=== PATIENT | male | born 1970 | race Caucasian/White ===

== ENCOUNTER 2019-05-10 22:18 | Emergency (ER) | payer BC ==
[~2019-05-10] VITALS: Ht 170.1 cm; Wt 83.9 kg
[~2019-05-10 22:18] MED LIST: AGM875T PO; CEPH-38 PO; CPR500T PO; CYCL10TA9 PO; HYDR-2997 PO; HYDR1CAP2 PO; HYDR1TAB PO; IBP800T PO; NAPR-243 PO; OXYC-12 PO; PRD50T PO; RNT150T PO
[2019-05-10] MEDS ORDERED: L.E.T. SYRINGE 5 ML ONE (22:49)
[2019-05-10] MEDS ORDERED: LIDOCAINE/EPI 2% 1:100,00 (XYLOCAINE) 20 ML VIAL INJ ONE (23:00)
[2019-05-10] MEDS ORDERED: SODIUM BICARB 8.4% 50 MEQ/50 ML VIAL IV ONE (23:00)
[2019-05-10] MEDS ORDERED: L.E.T. SYRINGE 5 ML TOP ONE (23:00)
[2019-05-10] MEDS ORDERED: SULF1TAB35 PO (23:44)
[2019-05-10] MEDS ORDERED: TRIM/SULFAMETH 160/800 (SEPTRA DS) TAB PO ONE (23:45)
--- NOTE | 2019-05-10 23:46 | ED General ---
General Chief Complaint: Skin/Wound Problems Stated Complaint: SORE ON NECK Nursing Triage Note: C/O PAINFUL SWOLLEN AREA ON LEFT JAW LINE, STATES WAS THE SIZE OF A PEA YESTERDAY AND NOW IS HALF DOLLAR SIZE AND 6/10 ON PAIN SCALE. NO DRAINAGE, NO FEVERS PER PATIENT. Nursing Sepsis Screen: No Definite Risk Source of Information: Patient Exam Limitations: No Limitations History of Present Illness Date Seen by Provider: May 10, 2019 Time Seen by Provider: 22:41 Initial Comments This 49-year-old gentleman presents to the emergency room with a painful swelling over the angle of his left jaw. It has been progressing over the past couple of days. He reports it was the size of a pea yesterday and much larger and more painful today. He denies any drainage. His 17-year-old daughter tried to drain it with a needle. He denies any fever. Allergies and Home Medications Allergies Coded Allergies: ARNAUDANo Known Allergies (Unverified Allergy, Mild, 11/20/08) Home Medications Cyclobenzaprine Hcl 10 Mg Tablet, 1 EACH PO Q8HR PRN Prescribed by: MARIANA SCHRADER on 06/09/12 1116 Ibuprofen 800 Mg Tablet, 1 TAB PO TID PRN Prescribed by: MARIANA SCHRADER on 06/09/12 1116 Oxycodone Hcl/Acetaminophen 1 Each Tablet, 1 EACH PO Q6H PRN Prescribed by: MARIANA SCHRADER on 06/09/12 1116 Prednisone 50 Mg Tab, 50 MG PO DAILY Prescribed by: MARIANA SCHRADER on 06/09/12 1117 Sulfamethoxazole/Trimethoprim 1 Each Tablet, 1 EACH PO BID Prescribed by: MARIANA SCHRADER on 05/10/19 2344 Patient Home Medication List Home Medication List Reviewed: Yes Review of Systems Review of Systems Constitutional: no symptoms reported EENTM: see HPI Respiratory: no symptoms reported Cardiovascular: no symptoms reported Gastrointestinal: no symptoms reported Genitourinary: no symptoms reported Musculoskeletal: no symptoms reported Skin: no symptoms reported Psychiatric/Neurological: No Symptoms Reported Hematologic/Lymphatic: No Symptoms Reported Immunological/Allergic: no symptoms reported Past Clpsetf-Ajrqbf-Hnczkk Hx Past Med/Social Hx: Reviewed Nursing Past Med/Soc Hx Patient Social History Alcohol Use: Denies Use Recreational Drug Use: No Recent Foreign Travel: No Contact w/Someone Who Travel: No Recent Infectious Disease Expo: No Recent Hopitalizations: No Physical Abuse: No Sexual Abuse: No Mistreated: No Fear: No Immunizations Up To Date Date of Influenza Vaccine: Dec 12, 2018 Past Medical History Surgeries: Yes (HERNIA) Abdominal, Orthopedic Respiratory: No Cardiac: No Neurological: No Genitourinary: No Gastrointestinal: Yes Hiatal Hernia Musculoskeletal: Yes (RIGHT FINGER AND SHOULDER) HEENT: No Cancer: No Psychosocial: No Integumentary: No Blood Disorders: No Physical Exam Vital Signs Vital Signs - First Documented 05/10/19 22:27 Temp 36.6 Pulse 65 Resp 20 B/P (MAP) 141/85 (103) Pulse Ox 98 Capillary Refill : Less Than 3 Seconds Height, Weight, BMI Height: '" Weight: lbs. oz. kg; 28.00 BMI Method:Stated General Appearance: No Apparent Distress, WD/WN HEENT: PERRL/EOMI, Other (large painful swelling over the angle of the left jaw with localized induration in a diameter of about 3 cm.) Neck: Normal Inspection, Supple Respiratory: Lungs Clear, Normal Breath Sounds, No Accessory Muscle Use Cardiovascular: Regular Rate, Rhythm, No Edema, No Murmur Extremity: Normal Inspection Neurologic/Psychiatric: Alert, Oriented x3, No Motor/Sensory Deficits, Normal Mood/Affect, trimmer press clippings II-XII Norm as Tested Skin: Normal Color, Warm/Dry, Other (see above) Procedures/Interventions I&D : Blade Size: 11 Progress Bedside ultrasound was performed and confirmed fluid collection resembling abscess. Topical anesthesia was applied with LET. Skin was then cleansed with alcohol. Buffered lidocaine with epinephrine was used for local anesthesia in a regional block surrounding the abscess. Approximately 8 mL was injected. A 1 cm incision was then made directly over the center of the abscess. A small amount of purulent drainage was expressed and cultured. Loculations were broken with a hemostat. More purulent drainage was expressed. Wound was then irrigated and dressed. Patient tolerated the procedure well. Progress/Results/Core Measures Suspected Sepsis Recent Fever Within 48 Hours: No Infection Criteria Present: None New/Unexplained Altered Menta: No Sepsis Screen: No Definite Risk SIRS Temperature: Pulse: 65 Respiratory Rate: 20 Blood Pressure 141 /85 Mean: 103 Results/Orders My Orders Orders - MARIANA CANCINO MD Let Solution (Let Solution) (05/10/19 23:00) Lidocaine/Epi 2% 1:100,000 (Xylocaine/Ep (05/10/19 23:00) Sodium Bicarbonate 8.4% Vial (Sodium Bic (05/10/19 23:00) Let Solution (Let Solution) (05/10/19 22:49) Sulfamethoxazole/Trimet Ds Tab (Bactrim (05/10/19 23:45) Medications Given in ED Current Medications Medications Dose Ordered Sig/Rupa Route Start Time Stop Time Status Last Admin Dose Admin Lidocaine/ Epinephrine 20 ml ONCE ONCE INJ 05/10/19 23:00 05/10/19 23:01 DC 05/10/19 23:25 20 ML Sodium Bicarbonate 50 meq ONCE ONCE IV 05/10/19 23:00 05/10/19 23:01 DC 05/10/19 23:25 50 MEQ Tetracaine/ Epinephrine/ Lidocaine 1 ea ONCE ONCE TOP 05/10/19 23:00 05/10/19 23:01 DC 05/10/19 22:56 1 EA Trimethoprim/ Sulfamethoxazole 1 ea ONCE ONCE PO 05/10/19 23:45 05/10/19 23:46 DC 05/10/19 23:47 1 EA Vital Signs/I&O 05/10/19 05/10/19 22:27 23:58 Temp 36.6 36.6 Pulse 65 65 Resp 20 20 B/P (MAP) 141/85 (103) 141/85 (103) Pulse Ox 98 98 Capillary Refill : Less Than 3 Seconds Blood Pressure Mean: 103 Progress Note : Progress Note Bedside ultrasound revealed fluid collections suggesting abscess. Incision and drainage was performed with culture collection. A dose of Bactrim DS was administered. Departure Impression Primary Impression: Abscess Additional Impression: Encounter for incision and drainage procedure Disposition: HOME, SELF-CARE Condition: Improved Departure-Patient Inst. Decision time for Depature: 23:42 Referrals: NO,LOCAL PHYSICIAN (PCP/Family) Primary Care Physician Patient Instructions: Abscess Incision and Drainage (DC) Add. Discharge Instructions: You may take ibuprofen up to 600 mg every 6 hours and/or Tylenol (acetaminophen) up to 1000 mg every 6 hours as needed for pain. Apply warm moist compresses for 20-30 minutes 2 or 3 times a day for the next few days. Keep covered until it quits draining. Complete the entire course of antibiotics as prescribed. If this is actually an infected sebaceous cyst instead of an abscess, you may eventually need it surgically removed. Please follow-up with your primary care provider if you have recurrence of a lump in this area. Return to care if you have worsening symptoms, especially if you develop fevers over 100. Avoid shaving in this area until skin is healed. All discharge instructions reviewed with patient and/or family. Voiced understanding. Scripts Sulfamethoxazole/Trimethoprim (Bactrim Ds Tablet) 1 Each Tablet 1 EACH PO BID, #14 TAB Prov: MARIANA CANCINO MD 05/10/19 MARIANA CANCINO MD May 10, 2019 23:46
[2019-05-10 23:58] VITALS: BP 141/85
== END 2019-05-11 00:01 | disposition home or self-care (01) ==
LOC: EDUNIT# 22:18 → ER 22:20
DX: M27.2 Inflammatory conditions of jaws (principal); Z79.52 Long term (current) use of systemic steroids
CPT/HCPCS: 87070; 87077; 87205; 99283

== ENCOUNTER 2019-11-09 11:26 | Emergency (ER) | payer SELFPAY ==
[~2019-11-09] VITALS: Ht 167.7 cm; Wt 63.6 kg
[~2019-11-09 11:26] MED LIST changes: +SULF1TAB35 PO
[2019-11-09 12:25] LABS: BILIRUBIN,URINE NEGATIVE (NEGATIVE); CLARITY,URINE CLEAR; COLOR,URINE YELLOW; GLUCOSE, URINE (UA) NEGATIVE (NEGATIVE); KETONES,URINE NEGATIVE (NEGATIVE); LEUKOCYTE ESTERASE ,URINE NEGATIVE (NEGATIVE); NITRITE,URINE NEGATIVE (NEGATIVE); PROTEIN,URINE NEGATIVE (NEGATIVE)
--- NOTE | 2019-11-09 12:26 | NUR ---
DAUGHTER IN LAW CALLED CHECKING ABOUT HIM TALKED WITH PATIENT OK TO TALK WITH HER.
--- NOTE | 2019-11-09 12:29 | NUR ---
DR PICKARD HERE TO SEE PATIENT.
--- NOTE | 2019-11-09 12:29 | NUR ---
Nieves akins in [facility] - 11/09/19 at [address] PICKARD HERE TO SEE PATIENT.
[2019-11-09 12:34] LABS: BACTERIA,URINE NEGATIVE /HPF; SQUAMOUS EPITHELIAL CELL,UR 0-2 /HPF
[2019-11-09 12:36] LABS: AMPHETAMINE SCREEN, URINE POSITIVE (NEGATIVE); BARBITURATE SCREEN URINE NEGATIVE (NEGATIVE); BENZODIAZEPINES SCREEN URINE NEGATIVE (NEGATIVE); CANNABINOID SCREEN, URINE NEGATIVE (NEGATIVE); COCAINE SCREEN URINE NEGATIVE (NEGATIVE); METHADONE STAT NEGATIVE (NEGATIVE); METHAMPHETAMINE SCREEN URINE S POSITIVE (NEGATIVE); OPIATE SCREEN URINE NEGATIVE (NEGATIVE); OXYCODONE STAT NEGATIVE (NEGATIVE); PROPOXYPHENE STAT NEGATIVE (NEGATIVE); TRICYCLIC ANTIDEPRESSANTS SCRE NEGATIVE (NEGATIVE)
[2019-11-09 12:45] LABS: BASOPHILS % (AUTO) 0 % (0-10); EOSINOPHILS % (AUTO) 1 % (0-10); HEMATOCRIT 36 % (40-54); HEMOGLOBIN 11.9 G/DL (13.3-17.7); LYMPHOCYTES % (AUTO) 22 % (12-44); MEAN CORPUSCULAR HEMOGLOBIN 30 PG (25-34); MEAN CORPUSCULAR HGB CONC 33 G/DL (32-36); MEAN CORPUSCULAR VOLUME 91 FL (80-99); MEAN PLATELET VOLUME 9.7 FL (7.4-10.4); MONOCYTES # (AUTO) 0.4 X 10^3 (0.0-1.0); MONOCYTES % (AUTO) 9 % (0-12); NEUTROPHILS # (AUTO) 3.1 X 10^3 (1.8-7.8); NEUTROPHILS % (AUTO) 67 % (42-75); PLATELET COUNT 289 10^3/uL (130-400); RED CELL DISTRIBUTION WIDTH 11.9 % (10.0-14.5); WHITE BLOOD COUNT 4.6 10^3/uL (4.3-11.0)
--- NOTE | 2019-11-09 12:53 | NUR ---
DR WATSON HERE TO SEE PATIENT.
--- NOTE | 2019-11-09 12:56 | Diagnostic Imaging Report ---
PROCEDURE: CT lumbar spine without contrast. TECHNIQUE: Multiple contiguous axial images were obtained through the lumbar spine without the use of intravenous contrast. Sagittal and coronal reformations were then performed. Auto Exposure Controls were utilized during the CT exam to meet ALARA standards for radiation dose reduction. INDICATION: Patient fell four weeks ago with persistent back pain. Study interpreted in correlation with abdominopelvic CT 04/21/2012 and lumbar plain films performed in 2009. FINDINGS: Grade 1 L5 on S1 anterolisthesis stable from the comparison studies and owing to chronic bilateral L5 spondylolysis defects. There are progressive degenerative changes across the L5-S1 facets and endplate articulations with progressive loss of disc height, disc bulge, and endplate osteophytes. There is a urhfaddb-do-yzqmhi magnitude of biforaminal stenosis right greater than left. An acute or subacute injury however is not identified and there is no evidence for paravertebral hematoma. The remaining levels are aligned normally. The remaining pedicles and pars were intact. The partially visualized sacrum and SI joints are nonacute. The transverse processes are intact. No paravertebral mass, hemorrhage, or fluid collection. IMPRESSION: 1. Chronic L5 on S1 grade 1 anterolisthesis owing to chronic bilateral L5 spondylolysis defects. 2. Progressive secondary degenerative changes across the L5-S1 level but no acute or subacute injury identified. Remaining levels are unremarkable. Dictated by: Dictated on workstation # [id number]
--- OUTSIDE RECORDS SUMMARY | 2019-11-09 13:02 | XMS REPORT | Continuity of Care Document ---
Demographics Preferred Language Unknown Marital Status Unknown Congregational Affiliation Unknown Race Unknown Ethnic Group Unknown Author Organization Unknown Address Unknown Phone Unavailable Allergies Active Description Code Type Severity Reaction Onset Reported/Identified Relationship to Patient Clinical Status Yes NKANo Known Allergies NKA Miscellaneous Allergy Mild N/A 11/20/2008 Medications There is no data. Problems Date Dx Coded Attending Type Code Diagnosis Diagnosed By 12/26/2008 611.72 LUM P OR MASS IN BREAST 02/07/2009 466.0 ACUT E BRONCHITIS 10/03/2009 719.46 RADHA N IN JOINT, LOWER LEG 10/03/2009 726.32 LAT ERAL EPICONDYLITIS, OF ELBOW REGION 10/03/2009 780.52 INS OMNIA, UNSPECIFIED 10/03/2009 780.79 OTH ER MALAISE AND FATIGUE 12/20/2009 Ot 370.24 12/20/2009 Ot E000.8 12/20/2009 Ot E849.0 12/20/2009 Ot E926.2 05/15/2010 Ot 599.0 05/15/2010 Ot 788.0 05/15/2010 Ot 789.09 06/04/2012 V74.5 STD SCREEN 06/09/2012 Ot 724.5 03/01/2015 Ot 599.70 03/13/2015 Ot 599.70 05/11/2019 BARAK PELAYO, MARIANA Warren Ot M27.2 INFLAMMATORY CONDITIONS OF JAWS 05/11/2019 MARIANA CANCINO MD Ot Z79.52 MOLD CLAMPER (CURRENT) USE OF SYSTEMIC STER 05/13/2019 MARIANA CANCINO MD Ot M27.2 INFLAMMATORY CONDITIONS OF JAWS 05/13/2019 MARIANA CANCINO MD Ot Z79.52 MOLD CLAMPER (CURRENT) USE OF SYSTEMIC STER Procedures Code Description [place] [address] ROUT INE VENIPUNCTURE 06/04/2012 36937 SYPH ILLIS-STATE [facility] 06/04/2012 59909 HIV ANTIBODIES (RML) 06/04/2012 59463 GC/C HLAM URINE (STATE) 06/04/2012 Results Test Result Range Gram stain microscopy - 05/10/19 23:30 Gram stain microscopy No bacteria seen NRG Bacteria identification in wound by cult ure - 05/10/19 23:30 Bacteria identification in wound by culture GRAM P OS M NRG FREE TEXT EXTERNAL SUSCEPTIBILITY REPORTED 05/14 14: 00 NRG QUANTITY OF GROWTH FEW NRG MRSA AGAR RESISTANT ORGANISM/CONTACT ISOLATION NRG FREE TEXT ENTRY 2 PRELIM RAPID ID TEST AT P 05/12 12:50 NRG FREE TEXT ENTRY 3 PRESUMPTIVE MRSA; SCREENING AT V CP NRG CALL POSITIVES (F1 HELP) CLINDAMYCIN RESISTA NT WITHOUT INDUCTION NRG PBP2 RML CONFIRMED ID 05/12/19 13:05 NRG Dirithromycin susceptibility test by dis k diffusion - 05/10/19 23:30 Oxacillin susceptibility test by minimum inhibitory co ncentration R NRG Clindamycin susceptibility test by minimum inhibitory concentration > NRG Erythromycin susceptibility test by minimum inhibitory concentration > NRG Trimethoprim/sulfamethoxazole susceptibi lity test by minimum inhibitoryconcentration <= NRG Vancomycin susceptibility test by minimum inhibitory c oncentration 1 NRG Levofloxacin susceptibility test by minimum inhibitory concentration 4 NRG Rifampin susceptibility test by minimum inhibitory con centration <= NRG Cefazolin susceptibility test by minimum inhibitory co ncentration R NRG Linezolid susceptibility test by minimum inhibitory co ncentration 2 NRG Penicillin G susceptibility test by minimum inhibitory concentration > NRG Moxifloxacin susceptibility test by minimum inhibitory concentration <= NRG Minocycline susc MARIE <= NRG CULTURE, ANAEROBIC AND AEROBIC - 0 15:20 CULTURE, ANAEROBIC BACTERIA W/GRAM STAIN SEE NOTE NRG CULTURE, AEROBIC BACTERIA SEE NOTE NRG Encounters ACCT No. Visit Date/Time Discharge Status Pt. Type Provider Facility Loc./Unit Complaint [id number] 06/04/2012 12:14:00 06/04/2012 23:59: 59 CLS Outpatient [id number] 05/10/2019 22:20:00 020 00:01:00 DIS Emergency BARAK PELAYO, MARIANA Warren [facility] ER SORE ON NECK [id number] 05/09/2016 13:49:00 017 23:59:59 CLS Outpatient LUCIANA ORTIZ [facility] RAD RIGHT ROTATOR CUFF SPRA IN [id number] 10/12/2014 17:09:00 07/08/2 015 23:59:59 CLS Outpatient DMITRIY CANADA APRN [facility] QUICK [id number] 09/10/2013 12:37:00 014 23:59:59 CLS Outpatient [id number] 11/09/2019 11:28:[address] Emergency MARIZA ALEX [facility] ER LOW BACK PAIN;DETOX [id number] 06/09/2012 08:57:00 Document Registration [id number] 04/21/2012 16:10:00 Document Registration [id number] 05/15/2010 21:41:00 Document Registration [id number] 12/20/2009 01:38:00 Document Registration [id number] 05/12/2019 14:50:00 05/12/2019 23:59:5 9 CLS Outpatient GIOVANNY [facility] [id number] 05/12/2019 14:50:00 Document Registration
[2019-11-09 13:05] LABS: ALANINE AMINOTRANSFERASE 18 U/L (0-55); ALBUMIN 3.9 GM/DL (3.2-4.5); ALKALINE PHOSPHATASE 52 U/L (40-136); BILIRUBIN,TOTAL 0.4 MG/DL (0.1-1.0); BUN/CREATININE RATIO 12; CALCIUM 8.5 MG/DL (8.5-10.1); CARBON DIOXIDE 29 MMOL/L (21-32); CHLORIDE 105 MMOL/L (98-107); CREATININE SERUM 1.06 MG/DL (0.60-1.30); GFR ESTIMATED > 60; GLUCOSE 121 MG/DL (70-105); POTASSIUM 3.5 MMOL/L (3.6-5.0); SODIUM 142 MMOL/L (135-145); TOTAL PROTEIN 6.1 GM/DL (6.4-8.2)
--- NOTE | 2019-11-09 13:09 | ED General ---
General Chief Complaint: Detox Stated Complaint: LOW BACK PAIN;DETOX Nursing Triage Note: AMB TO ED REPORTS HAS CHRONIC BACK PAIN AND HAS STRTED USING METH TO HELP WITH THE PAIN LAST USED METH ON SAT REPORTS SMOKED IT. WANTS DETOX Nursing Sepsis Screen: No Definite Risk Source of Information: Patient Exam Limitations: No Limitations History of Present Illness Date Seen by Provider: Nov 09, 2019 Time Seen by Provider: 11:57 Initial Comments 49-year-old male who presents to emergency room with complaints of chronic low back pain for several years. He reports that he fell off of the ladder 4 weeks ago and has had worsening pain since then. He denies other injuries from the fall. He reports that he has been using meth for the past 4 weeks very heavily due to the pain. He reports that he's never use meth in the past. He reports that he smoked meth 4 days ago but this was last time since then. He has called a treatment facility in [place] that is reddened by one of his friends and is planning on going down there and checking himself. Associated Systoms: Denies Symptoms Allergies and Home Medications Allergies Coded Allergies: Toni Known Allergies (Unverified Allergy, Mild, 11/20/08) Home Medications Cyclobenzaprine Hcl 10 Mg Tablet, 1 EACH PO Q8HR PRN Prescribed by: MARIANA SCHRADER on 06/09/12 1116 Ibuprofen 800 Mg Tablet, 1 TAB PO TID PRN Prescribed by: MARIANA SCHRADER on 06/09/12 1116 Oxycodone Hcl/Acetaminophen 1 Each Tablet, 1 EACH PO Q6H PRN Prescribed by: MARIANA SCHRADER on 06/09/12 1116 Prednisone 50 Mg Tab, 50 MG PO DAILY Prescribed by: MARIANA SCHRADER on 06/09/12 1117 Sulfamethoxazole/Trimethoprim 1 Each Tablet, 1 EACH PO BID Prescribed by: MARIANA SCHRADER on 05/10/19 6854 Patient Home Medication List Home Medication List Reviewed: Yes Review of Systems Review of Systems Constitutional: see HPI; No chills, No fever Musculoskeletal: see HPI, back pain All Other Systems Reviewed Negative Unless Noted: Yes Past Ufdhore-Ayelam-Jjfobl Hx Past Med/Social Hx: Reviewed Nursing Past Med/Soc Hx Patient Social History Alcohol Use: Denies Use Recreational Drug Use: Yes (METH LAST USE WAS 11/06/2019) Smoking Status: Never a Smoker Recent Foreign Travel: No Contact w/Someone Who Travel: No Recent Infectious Disease Expo: No Recent Hopitalizations: No Immunizations Up To Date Date of Influenza Vaccine: Dec 12, 2018 Past Medical History Surgeries: Yes (HERNIA) Abdominal, Orthopedic Respiratory: No Cardiac: No Neurological: No Genitourinary: No Gastrointestinal: Yes Hiatal Hernia Musculoskeletal: Yes (RIGHT FINGER AND SHOULDER) HEENT: No Cancer: No Psychosocial: No Integumentary: No Blood Disorders: No Family Medical History Reviewed Nursing Family Hx Physical Exam Vital Signs Vital Signs - First Documented 11/09/19 11/09/19 11:45 13:31 Temp 36.9 Pulse 81 Resp 18 B/P (MAP) 131/85 (100) Pulse Ox 98 Capillary Refill : Less Than 3 Seconds Height, Weight, BMI Height: '" Weight: lbs. oz. kg; 22.00 BMI Method:Stated General Appearance: No Apparent Distress, WD/WN Neck: Full Range of Motion, Normal Inspection, Non Tender, Supple Respiratory: Chest Non Tender, Lungs Clear, Normal Breath Sounds, No Accessory Muscle Use, No Respiratory Distress Cardiovascular: Regular Rate, Rhythm, No Edema, No Gallop, No JVD, No Murmur, Normal Peripheral Pulses Back: Normal Inspection, No CVA Tenderness, Vertebral Tenderness (lumbar vertebral tenderness) Neurologic/Psychiatric: Alert, Oriented x3, Normal Mood/Affect Progress/Results/Core Measures Suspected Sepsis Recent Fever Within 48 Hours: No Infection Criteria Present: None New/Unexplained Altered Menta: No Sepsis Screen: No Definite Risk SIRS Temperature: Pulse: 81 Respiratory Rate: 18 Laboratory Tests 11/09/19 12:33: White Blood Count 4.6 Blood Pressure 131 /85 Mean: 100 Laboratory Tests 11/09/19 12:33: Creatinine 1.06, Platelet Count 289, Total Bilirubin 0.4 Results/Orders Lab Results Laboratory Tests Test 11/09/19 12:16 11/09/19 12:33 Range/Units Urine Color YELLOW Urine Clarity CLEAR Urine pH 6.0 5-9 Urine Specific [place] 1.010 L 1.016-1.022 Urine Protein NEGATIVE NEGATIVE Urine Glucose (UA) NEGATIVE NEGATIVE Urine Ketones NEGATIVE NEGATIVE Urine Nitrite NEGATIVE NEGATIVE Urine Bilirubin NEGATIVE NEGATIVE Urine Urobilinogen 0.2 < = 1.0 MG/DL Urine Leukocyte Esterase NEGATIVE NEGATIVE Urine RBC (Auto) NEGATIVE NEGATIVE Urine RBC NONE /HPF Urine WBC NONE /HPF Urine Squamous Epithelial Cells 0-2 /HPF Urine Crystals NONE /LPF Urine Bacteria NEGATIVE /HPF Urine Casts NONE /LPF Urine Mucus NEGATIVE /LPF Urine Culture Indicated NO Urine Opiates Screen NEGATIVE NEGATIVE Urine Oxycodone Screen NEGATIVE NEGATIVE Urine Methadone Screen NEGATIVE NEGATIVE Urine Propoxyphene Screen NEGATIVE NEGATIVE Urine Barbiturates Screen NEGATIVE NEGATIVE Ur Tricyclic Antidepressants Screen NEGATIVE NEGATIVE Urine Phencyclidine Screen NEGATIVE NEGATIVE Urine Amphetamines Screen POSITIVE H NEGATIVE Urine Methamphetamines Screen POSITIVE H NEGATIVE Urine Benzodiazepines Screen NEGATIVE NEGATIVE Urine Cocaine Screen NEGATIVE NEGATIVE Urine Cannabinoids Screen NEGATIVE NEGATIVE White Blood Count 4.6 4.3-11.0 10^3/uL Red Blood Count 3.94 L 4.35-5.85 10^6/uL Hemoglobin 11.9 L 13.3-17.7 G/DL Hematocrit 36 L 40-54 % Mean Corpuscular Volume 91 80-99 FL Mean Corpuscular Hemoglobin 30 25-34 PG Mean Corpuscular Hemoglobin Concent 33 32-36 G/DL Red Cell Distribution Width 11.9 10.0-14.5 % Platelet Count 289 130-400 10^3/uL Mean Platelet Volume 9.7 7.4-10.4 FL Neutrophils (%) (Auto) 67 42-75 % Lymphocytes (%) (Auto) 22 12-44 % Monocytes (%) (Auto) 9 0-12 % Eosinophils (%) (Auto) 1 0-10 % Basophils (%) (Auto) 0 0-10 % Neutrophils # (Auto) 3.1 1.8-7.8 X 10^3 Lymphocytes # (Auto) 1.0 1.0-4.0 X 10^3 Monocytes # (Auto) 0.4 0.0-1.0 X 10^3 Eosinophils # (Auto) 0.0 0.0-0.3 10^3/uL Basophils # (Auto) 0.0 0.0-0.1 10^3/uL Sodium Level 142 135-145 MMOL/L Potassium Level 3.5 L 3.6-5.0 MMOL/L Chloride Level 105 98-107 MMOL/L Carbon Dioxide Level 29 21-32 MMOL/L Anion Gap 8 5-14 MMOL/L Blood Urea Nitrogen 13 7-18 MG/DL Creatinine 1.06 0.60-1.30 MG/DL Estimat Glomerular Filtration Rate > 60 BUN/Creatinine Ratio 12 Glucose Level 121 H 70-105 MG/DL Calcium Level 8.5 8.5-10.1 MG/DL Corrected Calcium 8.6 8.5-10.1 MG/DL Total Bilirubin 0.4 0.1-1.0 MG/DL Aspartate Amino Transf (AST/SGOT) 18 5-34 U/L Alanine Aminotransferase (ALT/SGPT) 18 0-55 U/L Alkaline Phosphatase 52 40-136 U/L Total Protein 6.1 L 6.4-8.2 GM/DL Albumin 3.9 3.2-4.5 GM/DL My Orders Orders - MARIZA ALEX Ua Culture If Indicated (11/09/19 11:53) Drug Screen Stat (Urine) (11/09/19 11:53) Comprehensive Metabolic Panel (11/09/19 12:20) Ed Iv/Invasive Line Start (11/09/19 12:20) Cbc With Automated Diff (11/09/19 12:20) Ct Lumbar Spine Wo (11/09/19 12:20) Ketorolac Injection (Toradol Injection) (11/09/19 13:15) Medications Given in ED Current Medications Medications Dose Ordered Sig/Rupa Route Start Time Stop Time Status Last Admin Dose Admin Ketorolac Tromethamine 60 mg ONCE ONCE IM 11/09/19 13:15 11/09/19 13:16 DC 11/09/19 13:21 60 MG Vital Signs/I&O 11/09/19 11/09/19 11:45 13:31 Temp 36.9 Pulse 81 62 Resp 18 18 B/P (MAP) 131/85 (100) 116/76 Pulse Ox 98 Capillary Refill : Less Than 3 Seconds Blood Pressure Mean: 100 Departure Impression Primary Impression: Chronic back pain Additional Impression: Methamphetamine use Disposition: 01 HOME, SELF-CARE Condition: Stable/Unchanged Departure-Patient Inst. Decision time for Depature: 13:07 Referrals: PRASANNA LEWIS DO (PCP/Family) Primary Care Physician Patient Instructions: Low Back Pain (DC), Drug Abuse and Drug Addiction (DC) Add. Discharge Instructions: Call [facility] today to schedule an appointment for your outpatient treatment for methamphetamine use. [phone] Follow-up with your primary care provider within 1 week for recheck. Return back to the emergency r oom for worsening symptoms or concerns as needed. All discharge instructions reviewed with patient and/or family. Voiced unders syed. MARIZA ALEX Nov 09, 2019 13:09
[2019-11-09] MEDS ORDERED: KETOROLAC 60 MG/2 ML VIAL IM ONE (13:15)
[2019-11-09 13:31] VITALS: BP 116/76
== END 2019-11-09 13:31 | disposition home or self-care (01) ==
LOC: EDUNIT# 11:26 → ER 11:28
DX: G89.29 Other chronic pain (principal); M54.5 Low back pain; F15.90 Other stimulant use, unspecified, uncomplicated; Z79.52 Long term (current) use of systemic steroids
CPT/HCPCS: 36415; 72131; 80053; 80306; 81000; 85025

== ENCOUNTER 2020-02-26 21:45 | Emergency (ER) | payer OTHER ==
[~2020-02-26] VITALS: Ht 170.2 cm; Wt 65.8 kg
[2020-02-26] MEDS ORDERED: diphenhydrAMINE 50 MG/ML INJ (BENADRYL) IVP ONE (22:00)
[2020-02-26] MEDS ORDERED: FAMOTIDINE 20MG/2ML IV (PEPCID) IVP ONE (22:00)
[2020-02-26] MEDS ORDERED: methylPREDNISolone 125 MG (Solu-MEDROL) VIAL IVP ONE (22:00)
--- NOTE | 2020-02-26 22:11 | ED General ---
General Chief Complaint: Allergic Reaction Stated Complaint: ALLERGIC REACTION Nursing Triage Note: PT AMBULATE TO ROOM 07 WITH C/O ALLERGIC REACTION. PT STATES THAT HE ATE FRIED CHICKEN THIS EVENING AND DEVELOPED REDDNESS AND ITCHING TO BODY. Nursing Sepsis Screen: No Definite Risk Source of Information: Patient Exam Limitations: No Limitations History of Present Illness Date Seen by Provider: Feb 26, 2020 Time Seen by Provider: 22:08 Initial Comments This 50-year-old gentleman presents to the emergency room with concerns about possible allergic reaction. He developed symptoms after eating chicken and bread for supper. He has not consumed the bread in the past. After eating he abruptly had onset of skin erythema, burning/itching eyes, and intensely itching skin of the arms and legs. He has not had any tongue or mouth swelling or difficulty breathing. He has not had a severe allergic reaction to food in the past. He did have an allergic reaction requiring epinephrine when he was stung numerous times by yellow jackets. He reports current symptoms feel similar to the onset of that reaction. He has not yet taken any medications for his symptoms. Symptoms started about an hour ago. Vital signs are stable. Allergies and Home Medications Allergies Coded Allergies: NKANo Known Allergies (Unverified Allergy, Mild, 11/20/08) Uncoded Allergies: Tonyet (Allergy, Severe, Anaphylaxis, 02/26/20) Home Medications Cyclobenzaprine Hcl 10 Mg Tablet, 1 EACH PO Q8HR PRN Prescribed by: MARIANA SCHRADER on 06/09/12 111 Ibuprofen 800 Mg Tablet, 1 TAB PO TID PRN Prescribed by: MARIANA SCHRADER on 06/09/12 1116 Oxycodone Hcl/Acetaminophen 1 Each Tablet, 1 EACH PO Q6H PRN Prescribed by: MARIANA SCHRADER on 06/09/12 1116 Prednisone 50 Mg Tab, 50 MG PO DAILY Prescribed by: MARIANA SCHRADER on 06/09/12 1117 Sulfamethoxazole/Trimethoprim 1 Each Tablet, 1 EACH PO BID Prescribed by: MARIANA SCHRADER on 05/10/19 9504 Patient Home Medication List Home Medication List Reviewed: Yes Review of Systems Review of Systems Constitutional: no symptoms reported EENTM: see HPI Respiratory: no symptoms reported Cardiovascular: no symptoms reported Gastrointestinal: no symptoms reported Genitourinary: no symptoms reported Musculoskeletal: no symptoms reported Skin: see HPI Psychiatric/Neurological: No Symptoms Reported Hematologic/Lymphatic: No Symptoms Reported Immunological/Allergic: see HPI Past [id number] Hx Past Med/Social Hx: Reviewed Nursing Past Med/Soc Hx Patient Social History Alcohol Use: Denies Use Recreational Drug Use: No Smoking Status: Never a Smoker 2nd Hand Smoke Exposure: No Recent Foreign Travel: No Contact w/Someone Who Travel: No Recent Infectious Disease Expo: No Recent Hopitalizations: No Physical Abuse: No Sexual Abuse: No Mistreated: No Fear: No Immunizations Up To Date Date of Influenza Vaccine: Dec 12, 2018 Past Medical History Surgeries: Yes (HERNIA) Abdominal, Orthopedic Respiratory: No Cardiac: No Neurological: No Genitourinary: No Gastrointestinal: Yes Hiatal Hernia Musculoskeletal: Yes (RIGHT FINGER AND SHOULDER) HEENT: No Cancer: No Psychosocial: No Integumentary: No Blood Disorders: No Physical Exam Vital Signs Vital Signs - First Documented 02/26/20 21:51 Temp 35.9 Pulse 75 Resp 19 B/P (MAP) 162/92 (115) O2 Delivery Room Air Capillary Refill : Less Than 3 Seconds Height, Weight, BMI Height: '" Weight: lbs. oz. kg; 22.00 BMI Method:Stated General Appearance: No Apparent Distress, WD/WN HEENT: PERRL/EOMI, Normal ENT Inspection, Pharynx Normal Neck: Normal Inspection Respiratory: Lungs Clear, Normal Breath Sounds, No Accessory Muscle Use, No Respiratory Distress Cardiovascular: Regular Rate, Rhythm, No Edema, No Murmur Extremity: No Pedal Edema, Other (Erythema of the skin) Neurologic/Psychiatric: Alert, Oriented x3, No Motor/Sensory Deficits, Normal Mood/Affect, packaging associate II-XII Norm as Tested Skin: Warm/Dry, Erythema; No Rash Progress/Results/Core Measures Suspected Sepsis Recent Fever Within 48 Hours: No Infection Criteria Present: None New/Unexplained Altered Menta: No Sepsis Screen: No Definite Risk SIRS Temperature: Pulse: 75 Respiratory Rate: 19 Blood Pressure 162 /92 Mean: 115 Results/Orders My Orders Orders - MARIANA CANCINO MD Ed Iv/Invasive Line Start (02/26/20 21:54) Methylprednisolone Sod Succ (Solu-Medrol (02/26/20 22:00) Famotidine Injection (Pepcid Injection) (02/26/20 22:00) Diphenhydramine Injection (Benadryl Inje (02/26/20 22:00) Loratadine Tablet (Claritin Tablet) (02/26/20 22:45) Medications Given in ED Current Medications Medications Dose Ordered Sig/Rupa Route Start Time Stop Time Status Last Admin Dose Admin Diphenhydramine HCl 25 mg ONCE ONCE IVP 02/26/20 22:00 02/26/20 22:01 DC 02/26/20 22:05 25 MG Famotidine 20 mg ONCE ONCE IVP 02/26/20 22:00 02/26/20 22:01 DC 02/26/20 22:05 20 MG Methylprednisolone Sodium Succinate 125 mg ONCE ONCE IVP 02/26/20 22:00 02/26/20 22:01 DC 02/26/20 22:05 125 MG Vital Signs/I&O 02/26/20 21:51 Temp 35.9 Pulse 75 Resp 19 B/P (MAP) 162/92 (115) O2 Delivery Room Air Capillary Refill : Less Than 3 Seconds Blood Pressure Mean: 115 Progress Note #1: Time: 22:20 Progress Note Patient was seen and examined. Benadryl, Pepcid, and Solu-Medrol were ordered. Vital signs are stable at this time. Progress Note #2: Time: 22:48 Progress Note Patient symptoms completely resolved. He was additionally given Claritin before discharge. Departure Impression Primary Impression: Allergic reaction to food Qualified Codes: T78.1XXA - Other adverse food reactions, not elsewhere classified, initial encounter Disposition: HOME, SELF-CARE Condition: Improved Departure-Patient Inst. Decision time for Depature: 22:40 Referrals: PRASANNA LEWIS DO (PCP/Family) Primary Care Physician Patient Instructions: Food Allergy, Anaphylaxis Add. Discharge Instructions: Keep Benadryl (or generic diphenhydramine) on hand and take 50 mg every 4 hours as needed for rebound allergy symptoms. Avoid the inciting food products in the future. Return to the emergency room or call 911 if you have severe symptoms that include shortness of breath, tongue or throat swelling, etc. Also return to the emergency room if you have symptoms that do not improve with antihistamine use. All discharge instructions reviewed with patient and/or family. Voiced understanding. MARIANA CANCINO MD Feb 26, 2020 22:10
[2020-02-26] MEDS ORDERED: LORATADINE (CLARITIN) 10 MG TAB PO ONE (22:45)
[2020-02-26 23:12] VITALS: BP 151/72
== END 2020-02-26 23:12 | disposition home or self-care (01) ==
LOC: ER 21:45 → EDUNIT# 21:45 → ER 23:12
DX: T78.1XXA Other adverse food reactions, not elsewhere classified, initial encounter (principal); Z79.52 Long term (current) use of systemic steroids